=== PATIENT | female | born 1950 | race Caucasian/White ===

== ENCOUNTER 2023-12-19 09:59 | Day surgery (SDC) | payer MEDICARE, OTHER ==
[2023-12-19] MEDS ORDERED: Xylocaine-Mpf 2% 5 Ml Vial IJ ONE (10:00)
[2023-12-19] MEDS ORDERED: Depo-Medrol 40 MG/ML IM ONE (10:00)
[2023-12-19] MEDS ORDERED: DIPRIVAN 200 MG/20 ML IV ONE (11:40)
[2023-12-19] MEDS ORDERED: Lactated Ringers 1,000 ML IV ONE (12:00)
--- NOTE | 2023-12-19 13:27 | XRAY ---
Indication: Bilateral L4-S1 MBB. Intraoperative fluoroscopy provided for 6 seconds. Single digital spot image submitted for interpretation demonstrates posterior needle tips projecting over the expected left and right L4-S1 nerve roots. Correlate with intraoperative findings/report.
--- NOTE | 2023-12-19 15:00 | XRAY ---
6 seconds of fluoroscopy was used in surgery for a bilateral L4-S1 MBB.
== END 2023-12-19 12:07 | disposition home or self-care (01) ==
LOC: SDC-PAIN 09:59
PROVIDERS: ATTEND Psychiatry & Neurology Pain Medicine
DX: M47.816 Spondylosis without myelopathy or radiculopathy, lumbar region (principal); E11.9 Type 2 diabetes mellitus without complications
CPT/HCPCS: 64493; 64494; 72020; 77002; 82947; J1010; J2704

== ENCOUNTER 2024-02-06 10:00 | Day surgery (SDC) | payer MEDICARE, OTHER ==
[2024-02-06] MEDS ORDERED: Decadron 4 MG INJ IV ONE (10:01)
[2024-02-06] MEDS ORDERED: LIDOCAINE HCL 1% 50 MG/5 ML VL PF IJ ONE (10:01)
[2024-02-06] MEDS ORDERED: DIPRIVAN 200 MG/20 ML IV ONE (13:41)
[2024-02-06] MEDS ORDERED: Lactated Ringers 1,000 ML IV ONE (14:05)
--- NOTE | 2024-02-06 16:27 | XRAY ---
Indication: Right piriformis injection. Intraoperative fluoroscopy provided for 11 seconds. Single digital spot images submitted for interpretation demonstrates posterior needle tip projecting over the right piriformis. Small amount of contrast injected for needle tip placement. Correlate with intraoperative findings/report.
--- NOTE | 2024-02-06 16:51 | XRAY ---
11 seconds of fluoroscopy was used in surgery for a right piriformis injection.
== END 2024-02-06 14:06 | disposition home or self-care (01) ==
LOC: SDC-PAIN 10:00
PROVIDERS: ATTEND Psychiatry & Neurology Pain Medicine
DX: M79.18 Myalgia, other site (principal); E11.9 Type 2 diabetes mellitus without complications
CPT/HCPCS: 20552; 72170; 77002; 82947; 99100; J1100; J2001; J2704; Q9966

== ENCOUNTER 2024-10-29 14:56 | Day surgery (SDC) | payer MEDICARE, OTHER ==
[2024-10-29] MEDS ORDERED: dexAMETHasone sodium phosphate IJ ONE (14:57)
[2024-10-29] MEDS ORDERED: LIDOCAINE HCL 1% AMPUL 5 ML IJ ONE (14:57)
--- NOTE | 2024-10-29 18:23 | XRAY ---
Indication: Right piriformis injection. Intraoperative fluoroscopy provided for 10 seconds. Single digital spot image submitted for interpretation demonstrates posterior needle tip projecting over right piriformis. Small amount of contrast injected for needle tip placement. Correlate with intraoperative findings/report.
--- NOTE | 2024-10-30 09:16 | XRAY ---
10 seconds of fluoroscopy was used in surgery for a right piriformis injection.
== END 2024-10-29 16:55 | disposition home or self-care (01) ==
LOC: SDC-PAIN 14:56
PROVIDERS: ATTEND Psychiatry & Neurology Pain Medicine
DX: M79.18 Myalgia, other site (principal); E11.9 Type 2 diabetes mellitus without complications
CPT/HCPCS: 20552; 72170; 77002; 82947; J1100; Q9966